=== PATIENT | female | born 1955 | race Caucasian/White ===

== ENCOUNTER → 2018-05-09 11:59 | Outpatient (CLI) | payer BC, SELFPAY ==
[2018-05-13 09:19] LABS: HPV Reflexed? NOT INDICATED
== END ==
PROVIDERS: Obstetrics & Gynecology; PCP Family Medicine; Referring Provider Student in an Organized Health Care Education/Training Program; Visit Provider Student in an Organized Health Care Education/Training Program
DX: Z12.4 Encounter for screening for malignant neoplasm of cervix (principal)
CPT/HCPCS: 88175; G0145

== ENCOUNTER → 2018-05-16 14:41 | Outpatient (CLI) | payer BC, SELFPAY ==
[2018-05-19 09:04] LABS: HPV Reflexed? NOT INDICATED
== END ==
PROVIDERS: Visit Provider Obstetrics & Gynecology
DX: R87.615 Unsatisfactory cytologic smear of cervix (principal)
CPT/HCPCS: 88175; G0145

== ENCOUNTER → 2018-07-19 11:51 | Outpatient (CLI) | payer BC, SELFPAY ==
--- NOTE | 2018-07-19 11:56 | BI_ITS ---
MAMMOGRAPHY - BILATERAL SCREENING REASON FOR EXAM: Female, 63 years old. Routine annual screening examination. PERTINENT HISTORY: Non-contributory. TECHNIQUE: Digital bilateral breast yash (3D mammographic acquisition) in the CC and MLO projections. 2-D mediolateral oblique (MLO) and craniocaudad (CC) views of both breasts were obtained. CAD: Full Field Digital Mammography with Computer Added Detection was performed. COMPARISON: Comparison is made with prior study dated July 18, 2017 and July 14, 2016. FINDINGS: Breast Composition: The breasts are heterogeneously dense, which may obscure small masses. There are no dominant masses or suspicious calcifications. No other significant abnormalities are identified. There has been no significant change since the prior study. BI/SCREENING MAMM (CAD), BILAT IMPRESSION: Stable bilateral screening mammogram. Yearly follow-up mammogram recommended. (A) ASSESSMENT CATEGORY: BIRADS Category 1: Negative. A letter regarding these results will be sent to the patient by the facility within 30 days. Approximately 10% of breast cancers are not detected by mammography. A normal mammogram should not delay biopsy of a clinically suspicious abnormality. [id number] Electronically Signed: Marcelo Molian MD at 13:34 EST Tel [phone], Service support ,
== END ==
PROVIDERS: Family Provider Family Medicine; PCP Family Medicine; Referring Provider Obstetrics & Gynecology; Visit Provider Obstetrics & Gynecology
DX: Z12.31 Encounter for screening mammogram for malignant neoplasm of breast (principal)
CPT/HCPCS: 77063; 77067

== ENCOUNTER → 2019-07-20 10:32 | Outpatient (CLI) | payer BC, SELFPAY ==
--- NOTE | 2019-07-20 10:37 | BI_ITS ---
MAMMOGRAPHY - BILATERAL SCREENING REASON FOR EXAM: Female, 64 years old. Routine annual screening examination. PERTINENT HISTORY: Non-contributory. TECHNIQUE: Digital bilateral breast jef (3D mammographic acquisition) in the CC and MLO projections. 2-D mediolateral oblique (MLO) and craniocaudad (CC) views of both breasts were obtained. CAD: Full Field Digital Mammography with Computer Added Detection was performed. COMPARISON: Comparison is made with prior study dated July 19, 2018 and July 18, 2017. FINDINGS: Breast Composition: The breasts are heterogeneously dense, which may obscure small masses. There are no dominant masses or suspicious calcifications. Stable small benign appearing bilateral axillary lymph nodes. No other significant abnormalities are identified. There has been no significant change since the prior study. BI/SCREEN MAMM (CAD) W/JEF BILAT IMPRESSION: Stable bilateral screening mammogram. Yearly follow-up mammogram recommended. (A) ASSESSMENT CATEGORY: BIRADS Category 1: Negative. A letter regarding these results will be sent to the patient by the facility within 30 days. Approximately 10% of breast cancers are not detected by mammography. A normal mammogram should not delay biopsy of a clinically suspicious abnormality. [id number] Electronically Signed: Marcelo Molina, at 12:38 EST , Service support ,
== END ==
PROVIDERS: Family Provider Family Medicine; PCP Family Medicine; Referring Provider Obstetrics & Gynecology; Visit Provider Obstetrics & Gynecology
DX: Z12.31 Encounter for screening mammogram for malignant neoplasm of breast (principal)
CPT/HCPCS: 77063; 77067

== ENCOUNTER → 2020-08-19 14:31 | Outpatient (CLI) | payer MEDICARE, SELFPAY ==
--- NOTE | 2020-08-19 14:34 | BI_ITS ---
MAMMOGRAPHY - BILATERAL SCREENING REASON FOR EXAM: Female, 65 years old. Routine annual screening examination. PERTINENT HISTORY: Non-contributory. TECHNIQUE: Digital bilateral breast jef (3D mammographic acquisition) in the CC and MLO projections. 2-D mediolateral oblique (MLO) and craniocaudad (CC) views of both breasts were obtained. CAD: Full Field Digital Mammography with Computer Added Detection was performed. COMPARISON: Comparison is made with prior study dated 07/20/2019 and 07/19/2018. FINDINGS: Breast Composition: The breasts are heterogeneously dense, which may obscure small masses. There are no dominant masses or suspicious calcifications. No other significant abnormalities are identified. There has been no significant change since the prior study. BI/SCREEN MAMM (CAD) W/JEF BILAT IMPRESSION: Stable bilateral screening mammogram. Yearly follow-up mammogram recommended. (A) ASSESSMENT CATEGORY: BIRADS Category 1: Negative. A letter regarding these results will be sent to the patient by the facility within 30 days. Approximately 10% of breast cancers are not detected by mammography. A normal mammogram should not delay biopsy of a clinically suspicious abnormality. [id number] Electronically Signed: Marcelo Molina, at 15:43 EST , Service support ,
--- NOTE | 2020-08-19 14:37 | BD_ITS ---
STUDY: DUAL ENERGY X-RAY ABSORPTIOMETRY / DXA REASON FOR EXAM: Female, 65 years old. [employer]- EARLY AT 41 YRS OLD -- HX OF HRT -- TAKES 1200MG CALCIUM -- HX OF TAKING BONIVA AND FOSAMAX -- DOES HIGH AMOUNT OF EXERCISE -- FAMILY HX OF OSTEO- MOTHER -- HX OF LEFT ANKLE FX -- FROILAN OF 1 INCH TECHNIQUE: Bone Mineral Density (BMD) measurements of lumbar spine and bilateral hips were obtained. COMPARISON: Comparison is made with prior study dated 05/28/2015. FINDINGS: Lumbar Spine (L1-L4): g/cm2 (0.808) / T-score (-3.1) / Z-score (-1.5) Findings are suggestive of osteoporosis with a high fracture risk. Increased thoracic kyphosis. Left Femur Total: g/cm2 (0.790) / T-score (-1.7) / Z-score (-0.5) Left Femoral Neck: g/cm2 (0.738) / T-score (-2.2) / Z-score (-0.7) Right Femur Total: g/cm2 (0.797) / T-score (-1.7) / Z-score (-0.4) Right Femoral Neck: g/cm2 (0.743) / T-score (-2.1) / Z-score (-0.6) The T-Scores on the most recent prior examination were: Lumbar Spine (L1-L4): There has been worsening of bone density since the previous examination. Left Femur Total: which represents a worsening of 6%. Right Femur Total: which represents a worsening of 4.9%. BD/Dexa Bone Density Study IMPRESSION: The patient is considered osteoporotic as outlined below according to World [employer] Organization (WHO) criteria with a high fracture risk. There has been worsening of bone density since the previous examination. Reference Information: The T-score is the number of standard deviations above or below the standard which is normal for young adults at their peak bone mineral density. The World Health Organization (WHO) interprets the T-scores as follows: Above -1 Normal bone density Between -1 and -2.5 Osteopenia Equal to / or below -2.5 Osteoporosis As a practical clinical guideline, osteopenia may be graded as follows: Mild -1 through -1.5 Moderate -1.6 through -2.0 Severe -2.1 through -2.4 The Z-score is the number of standard deviations above or below age-matched controls. A Z-score of less than -1.5 would be considered abnormal. References: 1. NIH Osteoporosis and Related Bone Diseases www osteo.org 2. International Society for Clinical Densitometry www iscd.org 3. National Osteoporosis Foundation www nof.org Electronically Signed: Marcelo Molina, at 10:43 EST , Service support ,
== END ==
PROVIDERS: PCP Family Medicine; Referring Provider Student in an Organized Health Care Education/Training Program; Visit Provider Student in an Organized Health Care Education/Training Program
DX: Z12.31 Encounter for screening mammogram for malignant neoplasm of breast (principal); N85.9 Noninflammatory disorder of uterus, unspecified; Z78.0 Asymptomatic menopausal state
CPT/HCPCS: 77063; 77067; 77080

== ENCOUNTER → 2020-09-18 09:41 | Outpatient (CLI) | payer MEDICARE, SELFPAY ==
[2020-09-18 11:10] LABS: ALB/GLOB Ratio 1.1 RATIO (0.9-2.4); AST(SGOT) 18 U/L (15-37); Alanine Aminotransfer ALT/SGPT 22 U/L (13-56); Albumin, Serum 3.7 g/dL (3.2-5.0); Alkaline Phosphatase 66 U/L (45-117); Anion Gap 5 (5-15); BUN 19 mg/dL (7-18); BUN/Creat Ratio 23.4 RATIO (10-20); Calcium,Total 9.1 mg/dL (8.5-10.1); Chloride 105 mmol/L (98-107); Creatinine, Serum 0.81 mg/dL (0.55-1.02); EST Glomerular Filtration Rate 75 mL/min (>60); Est Glom Filt Rate - Afr Amer 91 mL/min (>60); Globulin 3.4 g/dL (2.2-4.2); Glucose 87 mg/dL (74-106); Potassium 3.9 mmol/L (3.5-5.1); Protein, Total 7.1 g/dL (6.4-8.2); Sodium Level 140 mmol/L (136-145)
[2020-09-18 11:13] LABS: Vitamin D,25 Hydroxy 44.1 ng/mL
== END ==
PROVIDERS: PCP Family Medicine; Visit Provider Student in an Organized Health Care Education/Training Program
DX: M81.0 Age-related osteoporosis without current pathological fracture (principal)
CPT/HCPCS: 36415; 80053; 82306

== ENCOUNTER 2024-10-04 07:53 | Emergency (ER) | payer MEDICARE, SELFPAY ==
[2024-10-04 07:54] VITALS: BP 142/77; PULSE 76; RESP 15; TEMP 36.7; O2SAT 98; BMI 18.6
--- NOTE | 2024-10-04 08:08 | EX.ED.UPPERE ---
HPI History of Present Illness HPI Narrative: 69-year-old female no seen past medical history. Was taking the pit out of an avocado this morning around 7 AM knife slipped and she lacerated between her left long and left ring finger. She is right-hand dominant. This occurred about an hour ago. Unsure her last tetanus. Will need updated. Denies other injuries. Chief Complaint: Laceration Informant: patient Occured/Mechanism Mechanism/Context: Yes injury Onset/Context/Timing Onset: Today Context: Sudden Onset Timing: Continuous Quality of Pain: Sharp Current Severity: Mild Maximum Severity: Mild Associated Symptoms Associated Symptoms: Negative for Parasthesia, Weakness or Loss of Funtion Narrative Narrative: 69-year-old female lacerated the webspace between her left long and left ring finger about an hour ago while cutting an avocado. Tetanus Immunization: Unknown Prior similar symptoms: No Recent Illness/Hospitalization: No PFSH PFSH Home Medications ?Medication ?Instructions ?Recorded ?Last Taken ?Type cephalexin 500 mg capsule 500 mg PO BID 5 days #10 caps 10/04/24 Unknown Rx Allergy/AdvReac Type Severity Reaction Status Date / Time No Known Allergies Allergy Verified 10/04/24 07:56 Social History Smoking Status: Never smoker ROS ROS ED ROS Narrative Denies recent illness. Constitutional Constitutional ED: Denies fever(s) Eyes Eyes: Denies blurry vision ENT ENT ED: Denies ear pain Cardiovascular Cardiovascular: Denies chest pain Respiratory/Chest Respiratory/Chest: Denies cough Gastrointestinal Gastrointestinal: Denies abdominal pain Genitourinary Genitourinary ED: Denies dysuria Musculoskeletal Musculoskeletal: Denies back pain Integumentary Denies abscess Neurologic Neurologic: Denies headache(s) Psychiatric Psychiatric: Denies anxiety or depression Endocrine Endocrinology: Denies cold intolerance Hematologic/Lymphatic Hematologic/Lymphatic: Denies easy bleeding Allergic/Immunologic Allergic/Immunologic ED: Denies mouth swelling EXAM Physical Exam Narrative Exam Narrative: Well-appearing 69-year-old female. Sitting upright in bed. Vital signs are stable afebrile. No acute distress. H EENT exam unremarkable. Pupils round reactive light. Normal speech. No trauma. Neck nontender. Back nontender. Lungs clear to auscultation bilaterally. Heart regular rhythm rate about 75 no murmur. Chest wall ribs nontender. Abdomen soft nontender. Moving all 4 extremities. Neurovascularly intact. The left hand is bandaged. There is dried blood. I will remove the bandage numerated suture her to get a better evaluation of the laceration. Neurologically she is awake and alert. No focal motor deficits. Const Vital Signs: 10/04/24 07:54 Temperature 98.1 F Temperature Source Temporal Pulse Rate 76 Respiratory Rate 15 Blood Pressure 142/77 H Blood Pressure Mean 98 Pulse Ox 98 Oxygen Delivery Method Room Air Positive well nourished and well developed; Negative for obese, cachectic, contractures or unkempt General Appearance ED: well developed and NAD; Negative for unkempt, cachectic, contractures, cyanotic or diaphoretic Nutritional Appearance: Negative for cachectic or obese HEENT Reports moist mucous membranes normocephalic and atraumatic Eyes PERRL and EOMs intact bilaterally Neck full ROM and supple Chest Wall inspection of chest normal and palpation of chest normal Resp normal respiratory effort and clear to auscultation bilaterally Auscultation: Negative for rales, rhonchi, wheezes or diminished lung sounds Cardio regular rate, regular rhythm, S1 normal heart sound, S2 normal heart sound and no murmurs Rate: Negative for bradycardia or tachycardic Rhythm: Negative for abnormal rhythm GI non-tender, non-distended and no masses Inspection: Negative for abdominal distention Auscultation: normoactive bowel sounds Palpation: soft; Negative for tender, guarding or rebound tenderness present Back/Spine no CVA tenderness General Back: Negative for CVA tenderness Cervical Spine: Negative for cervical spine tenderness Thoracic Spine / Upper Back: Negative for thoracic spinal tenderness Lumbar Spine / Lower Back: Negative for lumbar spinal tenderness Extremity normal to inspection and full ROM Extremity Narrative: Except laceration left hand. Webspace between the left long and ring fingers. Neuro oriented x3, CN's II-XII intact bilaterally, moves all extremities, no focal motor deficits and no sensory deficits noted Sensorium / Orientation: alert, oriented to person, oriented to place and oriented to time; Negative for orientation impaired, lethargic or stuporous Motor Exam: strength 5/5 throughout Psych mental status grossly normal Appearance: Negative for unkempt Mood & Affect: Negative for depressed, anxious or tearful Skin Lesions: no lesions Rashes: no rashes Trauma: laceration MDM MDM MDM Narrative Medical decision making narrative: 69-year-old female laceration left hand 1 to 2 hours ago. Tetanus will be updated. Area will be locally anesthetized cleaned, explored and closed. Re-evaluation of the left hand laceration reveals about a 1 inch laceration in the webspace between her left long and ring finger. There is pulsatile bleeding consistent with either a branch or injury to the digital artery. She has normal cap refill. She does have decreased sensation on the radial side of the left ring finger. She may have gotten a piece of the digital nerve. Area was local anesthetic lidocaine. Cleaned with Shur-Clens irrigated washed with saline explored. Enclosures in for supple up to 4-0 Ethilon suture. Patient tolerated well. Proper hemostasis wound closure was obtained. Repeat exam at 11:30 AM patient doing well. Currently no active bleeding either externally or under the skin of the laceration repair. She has mild swelling but no significant hematoma. She is awake alert fingers. We discussed the possibility of a digital artery or branch laceration also possibility of the digital nerve. Patient is comfortably discharged home. Procedures Lacerations Laceration between left long and ring finger webspace:: Length: 1.5 in Depth: Sub Q Shape: Linear Prep: Shure-Clens Laceration repair: Irrigated, Lidocaine, Local and Skin sutures Number of Sutures/Alban: 4 Suture Information: Ethilon, Simple and 4-0 Comment: Webspace laceration between the left long and ring finger. Pulsatile bleeding. May have gotten either the digital artery or branch of it. Normal range of motion. She does have decreased sensation along the radial side of the left ring finger. Cleaned using Shur-Clens. Washed and irrigated with saline. Explored. Locally anesthetized with lidocaine. Good cap refill. Normal range of motion. Decreased sensation. Closed using 4 simple erupted 4-0 Ethilon sutures. Proper hemostasis wound closure was obtained. Patient tolerated procedure well. Instructed on wound care suture removal. Discharge Plan Triage Chief Complaint: Laceration ED Provider: Daniel Amaro Dx/Rx/DC Orders Clinical Impression: Hand laceration Instructions: ED Laceration, Hand: All Closures Prescriptions: New cephalexin 500 mg capsule 500 mg PO BID 5 Days Qty: 10 0RF Primary Care Provider: Braulio Sanchez Referrals: Bursley,Braulio, MD [Primary Care Provider] - 10 Day for suture removal Activity Restrictions/Additional Instructions: Gently and carefully cleaned hand daily with soap and water. Rinse thoroughly. Apply antibiotic ointment. Daily. Tylenol for pain. Ice and elevate. Stitches out in 10 days. If your hand swells a lot return. You cut a branch or the digital artery of your finger. You may have also gotten the digital nerve and may cause you to have some numbness. Take the antibiotic Keflex 1 pill twice a day for 5 days to prevent infection. Print Language: Georgian Disposition Disposition: Home, Self Care
[2024-10-04] MEDS: Lidocaine 1% (20 ml mdv) 20 ML Vial 10 ML INFILT (08:43)
[2024-10-04] MEDS: Diphth,Pertuss(Acell),Tet Vac 0.5 ML Vial IM (08:43)
== END 2024-10-04 12:11 | disposition home or self-care (01) ==
PROVIDERS: Emergency Provider Emergency Medicine; PCP Family Medicine; Visit Provider Emergency Medicine
DX: S61.412A Laceration without foreign body of left hand, initial encounter (principal); W26.0XXA Contact with knife, initial encounter; Y93.K9 Activity, other involving animal care; Z23 Encounter for immunization
CPT/HCPCS: 12002; 90471; 90715; 99284